=== PATIENT | female | born 1960 | race Caucasian/White ===

== ENCOUNTER 2021-05-09 14:03 | Emergency (ER) | payer OTHER, SELFPAY ==
[2021-05-09 14:05] VITALS: BP 161/89; PULSE 73; RESP 19; TEMP 36.3; O2SAT 100; BMI 34.7
--- NOTE | 2021-05-09 14:52 | HMH.EDGENADL ---
ED Disposition Clinical Impression: Laceration Disposition: Home, Self-Care Condition on Discharge: Good Instructions: DI for Laceration Repair Prescriptions: cephALEXin [cephALEXin 500mg capsule*] 500 mg PO Q6H #20 cap Transmission Status: Received by MAURICIO [id number] Referrals: Geraldine Dominguez MD [Primary Care Provider] - 7-14 days (one week for suture removal) Time of Disposition: 14:56 - Critical Care Critical Care Time: No Attestation: On 05/09/21, the high probability of a clinically significant, sudden or life threatening deterioration of the following system(s) required my full and direct attention, intervention and personal management. The time I documented below is in addition to time spent performing reported procedures but includes the following listed in this critical care notation. Medical Decision Making - Medical Records Medical records reviewed: Yes: I reviewed the patient's medical records. - Jack Inquiry Pt receiving controlled substance: No Vital Signs: 05/09/21 14:05 Temperature 97.4 F L Temperature Source Oral Pulse Rate [Left Radial] 73 Respiratory Rate 19 Blood Pressure [Right Arm] 161/89 H Blood Pressure Mean [Right Arm] 113 Blood Pressure Source [Right Arm] Automatic Cuff Blood Pressure Position [Right Arm] Sitting 02 Sat by Pulse Oximetry 100 Oxygen Delivery Method Room Air Orders (Tests/Meds): ED MEDICATIONS Discontinued Medications Generic Name Dose Route Start Last Admin Trade Name Freq PRN Reason Stop Dose Admin Tetanus/Reduced Diphtheria/Acell Pertussis 0.5 ml 05/09/21 14:16 Tet/Diphth/Pert-Adult 0.5ml Syringe IM 05/09/21 14:17 .ONCE ONE Medical Decision Narrative: 60-year-old female presents to the emergency department with chief complaint of right thumb laceration from a can. Patient's wound is hemostatic, and not large but mildly gaping. Given the sensitivity of the area and high use of right thumb we will closed with sutures. Patient's wound was irrigated copiously at the bedside and closed with 4 interrupted sutures of 3-0 nylon. Patient tolerated the procedure well. Patient received a Tdap while in the emergency department. Patient will follow up with her PCP in 1 week for suture removal. Patient will also get antibiotics from her home pharmacy tomorrow and will take Keflex for 5 days as prophylaxis. General Adult HPI - General Chief complaint: Wound/Laceration Stated complaint: AO 05/09 laceration rt thumb Time Seen by Provider: 05/09/21 14:26 Mode of Arrival: Ambulatory Limitations: No Limitations Description of Symptoms (Recalled from ER Triage Doc. by RN): cut right thumb this am around 5am. - History of Present Illness HPI narrative: 60-year-old female with no significant past medical history who presents to the emergency department with a right thumb laceration. Patient was opening a can of pumpkin at 430 this morning when it lacerated the distal tip of her right thumb. Bleeding has been able to be controlled over the last few hours, but she was concerned at the size and that it was gaping and was concerned she may need stitches. Patient is right-handed, and it has been bothering her when grasping objects. She is not sure when her last tetanus vaccine was, and it has been much more than 10 years. complaint: right thumb laceration Onset (ago): hour(s) (10) - Related Data Previous Rx's Medication Instructions Recorded cephALEXin [cephALEXin 500mg 500 mg PO Q6H #20 cap 05/09/21 capsule*] Allergies Allergy/AdvReac Type Severity Reaction Status Date / Time No Known Allergies Allergy Verified 05/09/21 14:16 [facility] History - Hepatitis A Screen Drug use history?: No High risk sexual behaviors?: No History of sexually transmitted infection?: No Currently employed?: No Childcare worker?: No Do you have indoor plumbing?: Yes Do you have electricity?: Yes Attestation statement:: This patient feliciano
--- NOTE | 2021-05-09 15:20 | HMH.PROC ---
[facility] Procedure Note Procedure Note:: Right distal thumb laceration repair. Approximately 3 cm V-shaped laceration was present on the pulp of the right thumb which was mildly gaping with exposed subcutaneous tissue. Patient had intact motor and sensory prior to numbing agent being applied, and good cap refill. Patient received a digital block with 1% lidocaine without epinephrine. Wound was hemostatic. Wound was irrigated with 500 cc bottle of sterile water as well as Hibiclens baths. Wound did not show any foreign bodies. Wound was closed with 4, interrupted, 3-0 nylon sutures. Wound was hemostatic after closure. Patient's hand was dressed and a dry dressing, she was given a Tdap, and she will be sent home with Keflex. Patient advised to follow-up in 1 week for suture removal. Patient tolerated the procedure well and there were no complications.
[2021-05-09 15:30] VITALS: BP 150/77; PULSE 70; RESP 20; TEMP 36.3; O2SAT 100
== END 2021-05-09 15:32 | disposition home or self-care (01) ==
PROVIDERS: Emergency Provider Emergency Medicine; PCP Family Medicine
DX: S61.011A Laceration without foreign body of right thumb without damage to nail, initial encounter (principal); W26.8XXA Contact with other sharp object(s), not elsewhere classified, initial encounter; Y92.010 Kitchen of single-family (private) house as the place of occurrence of the external cause; Z23 Encounter for immunization
CPT/HCPCS: 12002; 90471; 90715; 99282